=== PATIENT | male | born 2000 | race Caucasian/White ===

== ENCOUNTER 2021-10-25 05:08 | Emergency (ER) | payer BC, SELFPAY ==
[2021-10-25] VITALS (22 sets, daily range): BP systolic 129–155; BP diastolic 75–98; PULSE 55–84; RESP 12–24; TEMP 36.3; O2SAT 94–100
--- NOTE | ~2021-10-25 | CT_ITS ---
EXAMINATION: CT abdomen pelvis wo con DATE: 10/25/2021 05:43 INDICATION: Right flank pain. Right lower quadrant abdominal pain. Nausea and vomiting. TECHNIQUE: Computed tomography (CT) of the abdomen and pelvis was performed without intravenous contr ast. Automated exposure control and iterative reconstruction technique were employed. The dose-length product was 279.17 mGy-cm. COMPARISON: None. FINDINGS: The visualized portions of the lung bases are clear without pneumonia or pleural effusion. The liver, gallbladder, spleen, pancreas, adrenal glands, and left kidney are normal. There is mild r ight hydronephrosis and hydroureter. There is a 3 mm stone in distal right ureter. There are no dilat ed loops of bowel. The appendix is normal. There are no pathologically enlarged lymph nodes. There is no free intraperitoneal fluid. There is thoracolumbar levocurvature. IMPRESSION: 1. 3 mm stone in distal right ureter with mild right hydronephrosis and hydroureter. Reviewed, dictated and finalized at location A. IMPRESSION: 1. 3 mm stone in distal right ureter with mild right hydronephrosis and hydrour eter.
[2021-10-25] MEDS: ONDANSETRON INJ 4 MG/2 ML VIAL IV PUSH (05:19)
[2021-10-25] MEDS: SODIUM CHLORIDE 0.9% IV 1,000 ML 999 ML IV CONT (05:19)
[2021-10-25] MEDS: MORPHINE SULFATE (*CRX) 4 MG/ML INJ IV PUSH (05:19)
[2021-10-25 05:24] LABS: Basophils Percent Auto 0.5 % (0.2-1.2); Eosinophils Absolute Auto 0.4 K/mm3 (0-0.3); Eosinophils Percent Auto 4.4 % (0-4.4); Hematocrit 44.8 % (42.0-52.0); Hemoglobin 15.7 g/dL (14.0-18.0); Immature Granulocyte Absolute 0.02 K/mm3 (0.00-0.031); Immature Granulocyte Percent A 0.2 % (0-0.5); Lymphocytes Absolute Auto 3.02 K/mm3 (0.9-3.2); Lymphocytes Percent Auto 36.6 % (18.3-44.2); Mean Corpuscular Volume 88.4 fl (80-100); Mean Platelet Volume 9.3 fl (7.4-10.4); Monocytes Absolute Auto 0.6 K/mm3 (0.1-0.6); Monocytes Percent Auto 6.8 % (2.6-8.5); Neutrophils Absolute Auto 4.3 K/mm3 (1.3-6.7); Neutrophils Percent Auto 51.5 % (45.5-73.1); Platelet Count Result 305 k/mm3 (150-375); Red Blood Count 5.07 M/mm3 (4.6-6.20); Red Cell Distribution Width 12.2 % (11.5-14.5); White Blood Count 8.3 K/mm3 (4.5-10.0)
--- NOTE | 2021-10-25 05:30 | ED.GENADULT ---
HPI - General Adult General Chief complaint: Abdominal Pain <Adan Junior MD - Last Filed: 10/25/21 07:07> Stated complaint: ABDOMINAL PAIN <Adan Junior MD - Last Filed: 10/25/21 07:07> Time Seen by Provider: 10/25/21 05:12 <Adan Junior MD - Last Filed: 10/25/21 07:07> History of Present Illness HPI narrative: Patient 21-year-old gentleman who presents the emergency department with chief complaint of abdominal pain patient reports that he started having pain today states that sharp and is located in the right flank and right lower quadrant. The patient reports the pain is not improved by anything nor is it worsened by anything patient reports he had some nausea with it patient denies blood in his urine denies diarrhea. The patient reports the pain is not worse with movement <Adan Junior MD - Last Filed: 10/25/21 07:07> Related Data Allergies/adverse reactions: Allergies Allergy/AdvReac Type Severity Reaction Status Date / Time No Known Allergies Allergy Verified 10/25/21 05:12 <Adan Junior MD - Last Filed: 10/25/21 07:07> Review of Systems Review of Systems: A 10 system review of systems was completed on the patient and is negative except for what is stated in the HPI. Nursing and ancillary documentation was reviewed. <Adan Junior MD - Last Filed: 10/25/21 07:07> Exam Narrative: GENERAL: Well-appearing, well-nourished, and in no acute distress. HEAD: Normocephalic, atraumatic. EYES: PERRLA and EOMI. ENT: Nares clear, no rhinorrhea or epistaxis. Mucous membranes moist. NECK: Supple. CHEST: Clear to auscultation. No respiratory distress. HEART: Regular rate and rhythm. No murmur heard. Normal peripheral pulses. ABDOMEN: Soft, nontender, nondistended, normal active bowel sounds. EXTREMITIES: Normal range of motion. No edema. SKIN: Warm, dry, no rash. NEURO: No focal deficits. Alert and oriented x3. PSYCH: Normal mood and affect. <Adan Junior MD - Last Filed: 10/25/21 07:07> Course Reevaluation(s) Reevaluation #1: PAtient states he feels better. I Discussed that he was found to have kidney stone as cause of pain. He denies any other questions or concerns. <Sandy Quintanilla MD - Last Filed: 10/25/21 17:33> Date: 10/25/21 <Sandy Quintanilla MD - Last Filed: 10/25/21 17:33> Time: 09:32 <Sandy Quintanilla MD - Last Filed: 10/25/21 17:33> Vital Signs Vital signs: Vital Signs Temperature 97.4 F L 10/25/21 05:13 Pulse Rate 77 10/25/21 05:13 Respiratory Rate 19 10/25/21 05:13 Blood Pressure 155/92 H 10/25/21 05:13 Pulse Oximetry 97 10/25/21 05:13 Oxygen Delivery Room Air 10/25/21 05:13 Temperature 97.4 F L 10/25/21 05:13 Pulse Rate 75 10/25/21 08:31 Respiratory Rate 16 10/25/21 08:31 Blood Pressure 129/75 10/25/21 08:31 Pulse Oximetry 98 10/25/21 08:31 Oxygen Delivery Room Air 10/25/21 05:13 <Adan Junior MD - Last Filed: 10/25/21 07:07> Vital Signs Temperature 97.4 F L 10/25/21 05:13 Pulse Rate 77 10/25/21 05:13 Respiratory Rate 19 10/25/21 05:13 Blood Pressure 155/92 H 10/25/21 05:13 Pulse Oximetry 97 10/25/21 05:13 Oxygen Delivery Room Air 10/25/21 05:13 Temperature 97.4 F L 10/25/21 05:13 Pulse Rate 75 10/25/21 08:31 Respiratory Rate 16 10/25/21 08:31 Blood Pressure 129/75 10/25/21 08:31 Pulse Oximetry 98 10/25/21 08:31 Oxygen Delivery Room Air 10/25/21 05:13 <Sandy Quintanilla MD - Last Filed: 10/25/21 17:33> Medical Decision Making Vital Signs Vital Signs: Vital Signs Temperature 97.4 F L 10/25/21 05:13 Pulse Rate 77 10/25/21 05:13 Respiratory Rate 19 10/25/21 05:13 Blood Pressure 155/92 H 10/25/21 05:13 Pulse Oximetry 97 10/25/21 05:13 Oxygen Delivery Room Air 10/25/21 05:13 Temperature 97.4 F L 10/25/21 05:13 Pul
[2021-10-25 05:39] LABS: Alanine Aminotransferase 33 U/L (6-50); Albumin Level 4.8 g/dL (3.5-5.1); Alkaline Phosphatase 50 U/L (38-126); Anion Gap 16 mmol/L (8-16); Aspartate Amino Transferase 27 U/L (17-59); Blood Urea Nitrogen 13 mg/dL (9-20); Carbon Dioxide 23 mmol/L (22-30); Chloride 102 mmol/L (98-107); Estimated CRCL calculation 72 ml/min; Estimated Glomerular Filt Rate > 60; Glucose 161 mg/dL (65-110); Lipase 26 U/L (23-300); Potassium 3.3 mmol/L (3.4-5.0); Sodium 141 mmol/L (137-145)
[2021-10-25] MEDS: HYDROmorphone HCL INJ (*CRX) 1 MG/ML SYR IV PUSH (06:17)
--- NOTE | 2021-10-25 07:15 | PC.NURSE ---
Addendum entered by Kristal Nicholson RN 10/25/21 07:15: Report given to JOSE ARMANDO Tavarez at this time. Original Note: JOSE ARMANDO Tavarez
[2021-10-25 08:49] LABS: Appearance Urine Clear (Clear); Bilirubin Urine 1+ (Negative); Blood Urine 3+ (Negative); Glucose Urine UA Negative (Negative); Ketones Urine 2+ mg/dL (Negative); Leukocyte Esterase Ur Negative LEU/UL (Negative); Nitrate Urine Negative (Negative); Protein Urine 1+ mg/dL (Negative); Specific Grav Ur >= 1.030 (1.001-1.035); Urobilinogen Urine 0.2 mg/dL (<2.0); pH Urine 5.5 (5.0-9.0)
[2021-10-25 09:02] LABS: Add Urine Microscopic? YES; Color Urine Dark Yellow (Yellow)
[2021-10-25 09:04] LABS: Bacteria Urine Trace /hpf; Mucus Urine Moderate /lpf; RBC Urine >75 /hpf (0-2); Squamous Epithelial Cell Urine Rare /hpf (Few)
== END 2021-10-25 09:48 | disposition home or self-care (01) ==
PROVIDERS: Emergency Medicine; Emergency Provider General Practice
DX: N13.2 Hydronephrosis with renal and ureteral calculous obstruction (principal)
CPT/HCPCS: 36415; 74176; 80053; 81001; 83690; 85025; 87086; 87088; 96361; 96374; 96375; 99284; J1170; J2270; J2405; J7030

== ENCOUNTER 2021-11-17 07:36 | Outpatient (CLI) | payer BC, SELFPAY ==
--- NOTE | ~2021-11-17 | CT_ITS ---
EXAMINATION: XR abdomen/kub 1V, CT abdomen pelvis wo con DATE: 11/17/2021 07:53 INDICATION: Right ureteral stone TECHNIQUE: 1. Computed tomography (CT) of the abdomen and pelvis was performed without intravenous contrast. Aut omated exposure control and iterative reconstruction technique were employed. The dose-length product was 184.96 mGy-cm. 2. A supine view of the abdomen on 2 radiographs was obtained. COMPARISON: CT dated 11/17/2021 FINDINGS: CT: Lung bases are clear. Visualized inferior heart is normal. No pericardial or pleural effusion. Liver, gallbladder, spleen, pancreas and bilateral adrenal glands are normal. Kidneys and ureters are jessica l with no urolithiasis, hydroureteronephrosis or perinephric/ureteral stranding. Bladder is normal. B owels including appendix are normal. No free intraperitoneal gas or fluid. No pathologically enlarged abdominal or pelvic lymphadenopathy. Bones are unremarkable. KUB: Normal bowel gas pattern. No evident urolithiasis. IMPRESSION: 1. No urolithiasis or other acute intra-abdominal/pelvic process. Reviewed, dictated and finalized at location B. IMPRESSION: 1. No urolithiasis or other acute intra-abdominal/pelvic process.
== END 2021-11-17 07:37 | disposition home or self-care (01) ==
LOC: ANHIMG 07:41
PROVIDERS: Visit Provider Nurse Practitioner Adult Health
DX: N20.1 Calculus of ureter (principal)
CPT/HCPCS: 74018; 74176